=== PATIENT | male | born 1970 | race American Indian/Alaskan Native ===

== ENCOUNTER 2019-08-11 10:06 | Emergency (ER) | payer SELFPAY ==
[2019-08-11 10:18] VITALS: BP 146/67
--- NOTE | 2019-08-11 11:19 | XRay Report ---
CHEST 2 VIEWS INDICATION: cough. COMPARISON: None. FINDINGS: Support devices: None. Heart: Within normal limits. Lungs/Pleura: No acute air space or interstitial disease. No significant pleural effusion. IMPRESSION: No acute findings. Signer Name: Dakota Calhoun MD Signed: 08/11/2019 11:14 AM Workstation Name: [id number]
--- NOTE | 2019-08-11 12:28 | Emergency Department Report ---
ED ENT HPI - General Chief complaint: Upper Respiratory Infection Stated complaint: HEADACHE/COLD Time Seen by Provider: 08/11/19 10:40 Source: patient Mode of arrival: Ambulatory Limitations: No Limitations - History of Present Illness Initial comments: 49-year-old -[place] male patient without significant past medical history presents with complaints of nasal congestion since yesterday. Patient states he is getting checked out because he had a coworker who was sick yesterday and coughing on him. He denies a coworker having any recent travel outside the country or known coronavirus. Patient also denies any cough, shortness of breath, fever/chills/sweats/body aches, hemoptysis, nausea/vomiting/diarrhea, headache, or any other complaints or concerns. Patient states he took [place] and his nasal congestion improved. - Related Data Allergies Allergy/AdvReac Type Severity Reaction Status Date / Time No Known Allergies Allergy Verified 08/11/19 10:13 ED Dental HPI - General Chief complaint: Upper Respiratory Infection Stated complaint: HEADACHE/COLD Time Seen by Provider: 08/11/19 10:40 Source: patient Mode of arrival: Ambulatory Limitations: No Limitations - Related Data Allergies Allergy/AdvReac Type Severity Reaction Status Date / Time No Known Allergies Allergy Verified 08/11/19 10:13 ED Review of Systems ROS: Stated complaint: HEADACHE/COLD Other details as noted in HPI Constitutional: denies: chills, diaphoresis, fever, malaise, weakness Eyes: denies: eye pain, vision change ENT: congestion. denies: throat pain Respiratory: denies: cough, shortness of breath Cardiovascular: denies: chest pain Gastrointestinal: denies: abdominal pain, nausea, vomiting, diarrhea Neurological: denies: headache, weakness Hematological/Lymphatic: denies: swollen glands ED Past Medical Hx - Past Medical History Previous Medical History?: No - Surgical History Past Surgical History?: No - Social History Smoking Status: Never Smoker Substance Use Type: None ED Physical Exam - General Limitations: No Limitations General appearance: alert, in no apparent distress, obese - Head Head exam: Present: atraumatic, normocephalic - Eye Eye exam: Present: normal appearance. Absent: scleral icterus - ENT ENT exam: Present: normal exam, normal orophraynx, mucous membranes moist - Neck Neck exam: Absent: tenderness, lymphadenopathy - Respiratory Respiratory exam: Present: normal lung sounds bilaterally. Absent: respiratory distress, chest wall tenderness - Cardiovascular Cardiovascular Exam: Present: regular rate, normal rhythm. Absent: systolic murmur, diastolic murmur, rubs, gallop - Extremities Exam Extremities exam: Present: normal inspection - Neurological Exam Neurological exam: Present: alert, oriented X3 - Psychiatric Psychiatric exam: Present: normal affect, normal mood - Skin Skin exam: Present: warm, dry, intact, normal color. Absent: rash, cyanosis, diaphoretic ED Course Vital Signs 08/11/19 10:14 Temperature 98.8 F Pulse Rate 103 H Respiratory 16 Rate Blood Pressure 146/67 O2 Sat by Pulse 96 Oximetry ED Medical Decision Making - Medical Decision Making Patient here with complaints of nasal congestion and concerns of coronavirus. Patient states he was exposed to a coworker who was coughing yesterday. He is negative for any coronavirus risk factors. Patient's vitals are normal. His congestion improves with [place]. His symptoms are nonemergent and he is stable for discharge home and follow-up with his primary care provider as needed. Discussed very strict return precautions in great detail with patient who verbalizes understanding. Critical care attestation.: If time is entered above; I have spent that time in minutes in the direct care of this critically ill patient, excluding procedure time. ED Disposition Clinical Impression: Nasal congestion Disposition: Z-07 MED SCREENING EXAM-LEFT Is pt being admited?: No Condition: Stable Instructions: Cold Symptoms (ED) Referrals: PRIMARY CARE, [Referring] - as needed
== END 2019-08-11 12:35 | disposition left against medical advice (07) ==
LOC: ED 10:06
DX: R09.81 Nasal congestion (principal)
CPT/HCPCS: 71046; 99283